=== PATIENT | female | born 1955 | race Caucasian/White ===

== ENCOUNTER → 2020-05-04 15:41 | Outpatient (CLI) | payer OTHER, SELFPAY ==
[2020-05-05 09:35] LABS: COVID19 Sendout Not Detected (Not Detect)
== END ==
PROVIDERS: Visit Provider Physician Assistant
DX: Z11.59 Encounter for screening for other viral diseases (principal)
CPT/HCPCS: 87635

== ENCOUNTER 2020-05-07 06:08 | Inpatient (IN) | payer OTHER, SELFPAY ==
[2020-05-04 10:56] VITALS: BMI 32.0
[2020-05-07] VITALS (14 sets, daily range): BP systolic 110–200; BP diastolic 59–111; PULSE 65–102; RESP 10–18; TEMP 36–36.9; O2SAT 93–100; BMI 33.0
--- NOTE | 2020-05-07 | PATH_ITS ---
[facility] Accession Number: [id number] . 01 Material submitted: . PART A: body - FACET CYST PART B: back - L3-4 DISC . 01 Clinical history: . TRANSLAMINAR INTERBODY FUSION/LAMINOTOMY . 02 Diagnosis: A. Facet Cyst, Translaminar Interbody Fusion/Laminotomy: Portions of fibrotendinous material with reactive features and small, reactive bone fragments. Negative for malignancy. . B. L3-4 Disc, Translaminar Interbody Fusion/Laminotomy: Fragments of fibrocartilage, consistent with disc material. MRV 05/10/2020 1603 Local . 02 Electronically signed: . Isis Brand MD, Pathologist NPI- [id number] . 01 Gross description: . A. Received in formalin, labeled with the patient's name, MRN and facet cyst, is a 1.8 x 1.3 x 1.0 cm poon-brown, ragged fragment of tissue. The entire external surface is inked black. The specimen is serially sectioned to reveal a white-poon, fibrotic cut surface. The entire specimen is submitted in cassettes A1-A2. B. Received in formalin, labeled with the patient's name, MRN and L3-4 disc, are [id number] irregular fragments of tissue measuring 0.7 cm and 1.5 cm in greatest dimension. The smaller fragment of tissue is cartilaginous. The entire specimen is submitted in cassette B1. ([id number]) /MRV 05/10/2020 0008 Local . 02 Pathologist provided ICD-10: M48.062, M51.16, M41.86 . 02 CPT . 881942, [id number] Performed at: [address] [place] [address] [address] [address], [place], [place] [id number] MD Genaro Beard MD Phone: [phone] Performed at: 02 [facility] [address] [place] [id number] MD Pinky Mitchell MD Phone: [phone]
[2020-05-07] MEDS: LACTATED RINGERS 1,000 ML 42 ML IV ×2 (07:07→09:42)
--- NOTE | 2020-05-07 07:09 | PM.PREOP ---
Pre-operative Note COVID-19 COVID-19 status: Negative Result date/Date tested (Pos, Neg/Pending): 05/04/20 Interval Note History & Physical reviewed/Exam performed by Physician: Yes Changes to H&P: No
[2020-05-07] MEDS: MIDAZOLAM 2 MG/2 ML VIAL IV (07:39)
[2020-05-07] MEDS: CEFAZOLIN 2 GM/100 ML FROZ.PIGGY IV ×2 (07:44→16:38)
--- NOTE | 2020-05-07 08:00 | DI.RAD.S_ITS ---
PROCEDURE: XR LUMBAR SPINE 2-3V INDICATIONS: L3-4 TLIF TECHNIQUE: 2 views of the lumbar spine were acquired. COMPARISON: SNO Outside Film, RG, SPINE LUMB 2 OR 3VW, 04/02/2020, 8:19. FINDINGS: Spot fluoroscopic intraoperative views demonstrating posterior spinal fixation at L4-L5 with paraspinal janet and pedicle screws. There is expected intraoperative alignment Interbody cage graft also noted. Dictated by: Ashok Perales M.D. on 05/07/2020 at 14:30 Approved by: Ashok Perales M.D. on 05/07/2020 at 14:32
--- NOTE | 2020-05-07 08:24 | SUR.OPER ---
Prone on spine table, head in foam head support, padded chest and pelvic supports, gel pad at knees, lower legs supported by pillows; nipples, genitalia and toes free of pressure, arms secured on foam padded arm boards at <90 degrees abduction. Tape over blanket at thigh secured to table.
[2020-05-07] MEDS: THROMBIN (RECOMBINANT) 5,000 UNIT VIAL 5000 UNIT TOP (08:33)
[2020-05-07] MEDS: SODIUM CHLORIDE 0.9% 1,000 ML, GENTAMICIN 80 MG IRR (08:33)
[2020-05-07] MEDS: BUPIVACAINE 0.5% (PF) 4 ML, MORPHINE-PF 4 MG, BUTORPHANOL 1 MG, fentaNYL 100 MCG INJ (10:01)
[2020-05-07] MEDS: VANCOMYCIN 1,000 MG VIAL 1000 MG TOP (10:02)
--- NOTE | 2020-05-07 11:54 | PM.OP.1 ---
Operative Date/Time/Diagnoses Date of procedure: 05/07/20 Time of procedure: 11:54 Pre-op diagnosis: Lumbar stenosis with radiculopathy Lumbar disc herniation Procedure & Clinicians Procedure: L2-3 and L3-4 laminectomy L3-4 TLIF (posterior/posterior interbody fusion) with cage L3, L4 screws Iliac crest bone graft aspirate Use of microscope Placement of epidural catheter Same procedure as scheduled: Yes Indications: [age] year old female with intractable pain from stenosis and disc herniation. They had failed conservative management and requested operative intervention. Risks and benefits of surgery were discussed and appropriate consents were obtained. Surgeon: Nimesh Mayo [employer] Director: Gail Dean Anesthesia Type: General Operative Notes Findings: Large 1.4 cm facet cyst at L3-4 on the left Inflammation throughout the entire spinal canal at this level as well as near absent disc material Closure Type: primary Specimen(s): other (Left L3-4 facet cyst and L3-4 disc material to pathology as well as L3-4 disc material for microbiology) Applied: catheter Estimated Blood Loss (mL): 200 Procedure in detail: The patient was brought to the operating room and intubated on the table. A time-out was performed. They were then rolled over to the well-padded Adolph table in the prone position. Preoperative antibiotics were given. The back was prepped and draped in the standard sterile fashion. Using fluoroscopy, a 4 cm longitudinal incision was made to the right of the midline. We used Bovie to come down to and split the lumbodorsal fascia. Using fluoroscopy and monitoring, we then percutaneously placed Jamshidi needles down the pedicles of L3 and L4 on the right side. These were changed out to guidewires and then we tapped and then placed the NuVasive MAS Reline screw shanks. We then opened up the retractors and used Bovie to clear up the posterolateral gutter as well as medially along the lamina to the spinous processes. She had a massively overgrown facet on the right-sided L3-4. A bur was used to decorticate the transverse processes. We brought in the microscope. Using a combination of bur and Kerrison rongeurs, a laminectomy was performed from the right side. Once we removed the facet hypertrophy and began removing the bone we came down to the canal. We are able to remove the ligamentum but once we opened up the canal this was covered in inflammatory tissue all over the dura. There also appeared to be a very large mass coming off where we had removed the facet. We spent a large amount of time carefully dissecting this off until we completely isolated laid a large 1.4 cm facet cyst and were able to remove it as the solid piece and we sent this to pathology. We then were able to go underneath the inflammatory mass on top of the dura and expose the dura. However was still extremely adherent along the exiting nerve root. We were able to dissect between the exiting nerve root and the dura inferiorly and finally exposed our disc space. We gradually were able to free this up further off the disc until we could retract. We worked up with a ball probe and there were loose fragments of disc material that easily swept out but no solid mass matching up to her extruded herniation on MRI. Please note that this was separate and distinct from an approach for a TLIF as with all the inflammatory tissue, this was like working through revision scar tissue and added an extra hour of time. We then began the TLIF prep. We carefully cleaned up the remainder of the foramen until we could easily retract the exiting root as well as clearing medially below the dura and expose the disc space. The disc was prepped with bipolar and then an annulotomy was performed. We went in with pituitary but there was no disc material in this. We performed a diskectomy using a combination of paddles, milagros, pituitaries, and curettes. We were able to remove several chunks of disc material from the opposite side but there was nothing on the right-hand side. This disc material was sent to pathology as well as microbiology. I was suspicious for her having had a possible low-grade diskitis due to the appearance of the overall inflammation as well as the absence of disc material on the right-hand side and rapid collapse of the disc on the right compared to her x-rays from last year. We distracted the disc using a paddle and locked the retractor in an open position. The wound and the disc space were irrigated. We then filled the disc space with Osteocel bone graft. We then placed the globus Rise cage under fluoroscopy and then filled this in with more bone graft. The distraction on the retractor was released to compress down. This completed the posterior interbody fusion portion of the TLIF at L3-4. We then moved the retractor up to the L2-3 level and expose the lamina. We continued taking a our laminectomy up at L2-3. We carefully depressed the dura and reach across the opposite side to adequately decompress it. There was still a large inflammatory mass all along the dura at this level that began tapering off at the top of the laminectomy. In the end we could sweep the ball probe cephalad, caudally, into the foramen and everything had been adequately opened. The wound was irrigated. An epidural catheter was then prepped with 4 mL of 0.5% Marcaine, 1 mg Stadol, 4 mg Duramorph, and 100 mcg of fentanyl and placed in the spinal canal by carefully depressing the dura and advancing it 6 cm cephalad under the remaining lamina without resistance. We then placed the screw heads, janet, and locked down the set screws. The wound was copiously irrigated. A small stab incision was made over the PSIS. We used a Jamshidi needle to aspirate several mL of bone marrow from the pelvis. This was mixed with the remaining Osteocel and combined with all of the locally harvested bone graft and placed in the posterolateral gutter for the posterior fusion of the TLIF at L3-4. The muscle fascia was closed. The epidural catheter was then injected without resistance and the catheter was pulled. We then went to the opposite side. Again using fluoroscopy, a 3 cm incision was made and Bovie was used to come down to split the fascia. Using neural monitoring and fluoroscopy, Jamshidi needles were advanced down the pedicles of L3 and L4 on the left side. These were switched over guidewires, tapped, and screws placed. We then placed a janet and locked the set screws on this side. The wound was irrigated. The fascia was closed. Vancomycin powder was placed in the wounds. The superficial and skin were closed. A sterile dressing was placed. The patient was then rolled over extubated and brought to recovery room without complications. Complications: none Post-operative Condition: stable Disposition: PACU Plan for aftercare: Inpatient. I plan to keep her on IV antibiotics for 2-3 days and see if anything grows from her disc material.
--- NOTE | 2020-05-07 13:33 | PC.ADMIT ---
Addendum entered by Maci Echevarria R.N. 05/07/20 14:15: PATIENT DESAT'S TO 87% WHEN DOZES OFF TO SLEEP. INSTRUCTED ON USE OF I.S. PATIENT ABLE TO REACH 2000CC'S X 10 BREATHS, CONTINUES TO DESAT WITH SLEEP. ADMINISTERED 2L/NC WITH SAT'S 98% WHILE ASLEEP. Original Note: [address] Admission Note: The patient,Day Mar,65 y/o, was given written information regarding hospital policies, unit procedures and contact persons. Patient's smoking status: Never smoker. Vital Signs - 8 hr 05/07/20 06:56 05/07/20 11:57 05/07/20 12:02 Temperature 98.5 F 97.2 F L Pulse Rate 102 H 102 H 100 H Respiratory Rate 18 18 18 Blood Pressure 200/111 H 111/68 120/79 Pulse Oximetry 100 94 93 05/07/20 12:10 05/07/20 12:15 05/07/20 12:30 Temperature 97.8 F Pulse Rate 92 H 92 H 97 H Respiratory Rate 10 L 10 L 16 Blood Pressure 111/69 110/66 112/59 L Pulse Oximetry 93 97 95 05/07/20 13:00 05/07/20 13:30 Temperature 98 F 98 F Pulse Rate 75 75 Respiratory Rate 15 16 Blood Pressure 124/97 H 131/74 Pulse Oximetry 95 95 PATIENT ARRIVED FROM RECOVERY AWAKE, DROWSY, CONVERSANT AND PLEASANT. VSS, FOOT SCD'S ON. IVF STARTED PER ORDERS, PROVIDED ICE WATER, DECLINES FOOD OFFERED. DENIES NAUSEA. BATISTA TO GRAVITY DRAINAGE. CMS INTACT, EXCELLENT STRENGTH WITH DORSIFLEX AND PLANTAR-FLEX. PATIENT DENIES PAIN, STATES I FEEL GREAT, I CAN'T BELIEVE IT'S OVER CONT PULSE OXIMETRY WITH SAT'S MID 90'S ON RA. JANAE CDI, INSTRUCTED ON LOGROLL. CALLED SPOUSE FOR PATIENT, TRANSF CALL INTO RM. PATIENT IS FROM [place]. PLANS TO STAY IN HOTEL ROOM WITH HER SPOUSE FOR 6 WEEKS UNTIL SHE IS CLEARED BY ORTHO TO FLY BACK TO [place]. ORIENTED TO RM AND CALL LIGHT SYSTEM. INSTRUCTED TO CALL FOR NEEDS.
[2020-05-07] MEDS: CELECOXIB 200 MG CAPSULE 400 MG PO (13:59)
[2020-05-07] MEDS: GABAPENTIN 600 MG TABLET PO ×2 (13:59→20:55)
[2020-05-07] MEDS: LACTATED RINGERS 1,000 ML 125 ML IV (13:59)
[2020-05-07] MEDS: CELECOXIB 200 MG CAPSULE PO (20:55)
[2020-05-07] MEDS: SENNOSIDES 8.6 MG TABLET 17.2 MG PO (20:55)
[2020-05-07] MEDS: DOCUSATE 100 MG CAPSULE PO (20:55)
[2020-05-08] VITALS: BP 133/84; PULSE 97; RESP 18; TEMP 36.6; O2SAT 97
[2020-05-08] MEDS: CEFAZOLIN 2 GM/100 ML FROZ.PIGGY IV ×3 (00:31→15:55)
[2020-05-08] MEDS: diphenhydrAMINE 25 MG TABLET PO (03:10)
--- NOTE | 2020-05-08 03:14 | PC.NURSE ---
Pt reports generalized itching. Benadryl given w/good results. Small amount of drainage noted on dressing. Margins marked - no increase in drainage throughout shift. Pt has no c/o of pain.
[2020-05-08 04:00] VITALS: BP 126/65; PULSE 99; RESP 18; TEMP 36.6; O2SAT 99
[2020-05-08 05:51] LABS: Hematocrit 25.3 % (36-46); Hemoglobin 8.4 g/dL (12.0-16.0)
[2020-05-08 07:20] VITALS: BP 111/57; PULSE 90; RESP 18; TEMP 37.1; O2SAT 98
[2020-05-08] MEDS: SODIUM CHLORIDE 0.9% 250 ML 21 ML IV (09:00)
[2020-05-08] MEDS: DOCUSATE 100 MG CAPSULE PO (09:12)
[2020-05-08] MEDS: GABAPENTIN 600 MG TABLET PO ×2 (09:13→15:54)
[2020-05-08] MEDS: LOSARTAN 25 MG TABLET PO (09:13)
[2020-05-08] MEDS: CELECOXIB 200 MG CAPSULE PO (09:13)
--- NOTE | 2020-05-08 09:25 | PM.PNPO.1 ---
Subjective Subjective Date Patient Seen: 05/08/20 Time Patient Seen: 09:25 Interval history: She is doing great. Minimal back pain no leg pain. About to get out of bed with therapy. Exam Vital Signs (past 8 hours): - 05/08/20 04:00 05/08/20 07:20 Temperature 97.8 F 98.7 F Pulse Rate 99 H 90 Respiratory Rate 18 18 Blood Pressure 126/65 111/57 L Pulse Oximetry 99 98 Oxygen Delivery Method Room Air Oxygen Flow Rate 0 Const Orientation: alert and oriented x3 Back/Spine/Pelvis Other: Moderate drainage, unchanged since overnight. 5/5 motor both lower extremities Objective Labs Result Diagrams: 05/08/20 05:32 Labs: Laboratory Results - last 24 hr 05/08/20 05:32 Hgb 8.4 L Hct 25.3 L Assessment & Plan Post-op Postoperative Procedures: Procedures Operation Date: 05/07/20 07:45 Actual Procedures Side Surgeon p L34 discectomy & instrumented fusion (TLIF) w/bone graft, L23 laminectomy Nimesh Mayo MD She is doing great. Her Gram stain from yesterday showed no organisms or white blood cells. Most likely this is just degenerative disc. Plan to mobilize her today with therapy. If she is doing great, could discharge home. If not, 1 more day. Quality VTE Deep Vein Thrombosis/Pulmonary Embolism Present on Admission: No
--- NOTE | 2020-05-08 09:46 | OT.IP.EVAL ---
Current Diagnoses Other forms of scoliosis, lumbar region (05/07/20) Spinal stenosis, lumbar region with neurogenic claudication (05/07/20) Intervertebral disc disorders with radiculopathy, lumbar region (05/07/20) Surgery Performed Operation Date: 05/07/20 07:45 Actual Procedures p L34 discectomy & instrumented fusion (TLIF) w/bone graft, L23 laminectomy - Nimesh Mayo MD Past Medical History (Last Updated 05/04/20 @ 11:10 by Angelita Anand RN) Arthritis (Acute) HTN (hypertension) (Acute) Surgical History (Last Updated 05/04/20 @ 11:10 by Angelita Anand RN) H/O foot surgery (Acute) H/O right wrist surgery (Acute) History of surgery (Acute) Hx of tonsillectomy (Acute) Occupational Therapy Inpatient Evaluation/Re-Eval M1 PT/OT-IP Prior Functional Status Start: 05/07/20 13:34 Freq: NEEDED Status: Active Protocol: Document 05/08/20 12:03 CGR (Rec: 05/08/20 12:33 CGR [email or web address]) Medical Review Prior Functional Status Medical History Reviewed Yes Communication Pt is an effective verbal communicator. Mobility and Gait Prior to significant increase in back pain, pt was IND. Pt has needed assist from her for mobility since her back pain has increased. Activities of Daily Living and IADL's Pt was IND prior to significant increase in back pain. Pt has been assisted by her husand since increase in pain. Prior Functional Level (Other details) Pt lives in [place]. Pt is currently staying in a hotel in [place] till her return flight home. The hotel has an elevator and no steps to enter . Social History Household Members spouse,other Living Arrangements House Number of Floors (Floors) One Floor Number of Stairs To Enter/Railing? 4 with B wide railings. Home Environment Standard Height Toilet,Tub/ Shower Doors Home Equipment Grab Bars Near Toilet,Grab Bars In Shower Employment Status Unemployed Additional Social History Comment Pt has no equipment at home. Pt has a flat bed. M3 OT- IP Subjective and Pain Start: 05/07/20 13:34 Freq: Status: Active Protocol: Document 05/08/20 12:03 CGR (Rec: 05/08/20 12:33 CGR [email or web address]) OT- Subjective Occupational Therapy Visit Type Type Initial Evaluation Visit Start Time 09:05 Visit Stop Time 09:46 Total Visit Minutes 41 Occupational Therapy Visit Comments Patient Comments I am not havign any pain. OT Pain Assessment Pain When Pain Assessed During Mobility Pain Present Pain Present Denied Pain M4 OT- IP ADL's Start: 05/07/20 13:34 Freq: Status: Active Protocol: Document 05/08/20 12:03 CGR (Rec: 05/08/20 12:33 CGR [email or web address]) OT [id number] Comments OT Self-Feeding Comments Not meal time OT ADL-Grooming General Evaluation Grooming Ability Independent Areas Needing Assistance Face Washing Comments OT Grooming Comments standing at sink OT ADL-Oral Care General Eval Oral Care Ability Independent Areas of Assistance Brushing Teeth Comments Oral Care Comments standing at sink OT ADL-Dressing General Eval Lower Body Dressing Ability Independent Areas Needing Assistance Socks Comments OT Dressing Comments seated in chair bringing foot to knee. Pt educated on sitting for LB dressign and technique for maintaining back precautions. OT ADL-Toileting General Evaluation Toileting Ability Standby Assistance Comments OT Toileting Comments simulated toileting seated on toielt OT ADL-Bathing Comments OT Bathing Comments not performed M6 OT- IP Functional Cognition Start: 05/07/20 13:34 Freq: Status: Active Protocol: Document 05/08/20 12:03 CGR (Rec: 05/08/20 12:33 CGR [email or web address]) Cognitive Factors Limiting Selfcare Function Cognitive Ability Level of Alertness Alert Patient Orientation Name,Age,Birthday,Month,Date, Year,Day of Week,Place, Situation Attention Span Ability Capable of Focused Attention, Capable of Sustained Attention Ability to Follow Commands Able to Follow Multi-Step Commands Memory Description No Deficits Noted Safety Awareness No Deficits Noted Problem Solving Ability No deficits Noted OT- Vision and Hearing OT- Hearing Assessment OT- Hearing Assessment WFL OT- Vision Assessment Visual Acuity Glasses For Reading Visual Attentiveness WFL Occular Pursuits WFL Visual Convergence WFL M7 OT- IP Mobility and Balance Start: 05/07/20 13:34 Freq: Status: Active Protocol: Document 05/08/20 12:03 CGR (Rec: 05/08/20 12:33 CGR [email or web address]) OT- Bed Mobility Assessment Rolling Type of Rolling Log Rolling,Roll to Left Level of Assistance Standby Assistance,Contact Guard Assistance Supine to Sit Supine to Sit Assist Standby Assistance Scooting Scooting to Edge of Bed Standby Assistance OT-Transfer Assessment Sit to and From Stand Sit to and from Stand Standby Assistance Transfers Transfer Ability Standby Assistance Technique Transfer Destination Bed,Chair,Toilet Transfer Technique Stand Step Pivot Devices Transfer Assistive Devices Gait Belt,Front Wheeled Walker OT- Gait Assessment Gait Gait Assistance Required: Standby Assistance Assistive Devices Assistive Device Gait Belt,Front Wheeled Walker Comments Gait Ability Comments mobility around the room. OT- Balance Assessment Sitting Balance and Reactions Static Sitting Balance Ability Normal Dynamic Sitting Balance Ability Normal M8 OT- IP Objective Assessments Start: 05/07/20 13:34 Freq: Status: Active Protocol: Document 05/08/20 12:03 CGR (Rec: 05/08/20 12:33 CGR [email or web address]) OT Gross Range of Motion Upper Extremity Range of Motion Assessment Within Functional Limits OT Strength Upper Extremity Strength Assessment Within Functional Limits Comments Strength Comments 4/5 throughout OT- Coordination Assessment Upper Extremity Finger to Nose Test Within Functional Limits Finger Tapping Test Within Functional Limits OT-Muscle Tone Assessment Muscle Tone WNL Yes OT Sensation Assessment Edema Edema Absent M9 OT- IP Assessment and Plan Start: 05/07/20 13:34 Freq: Status: Active Protocol: Document 05/08/20 12:03 CGR (Rec: 05/08/20 12:33 CGR [email or web address]) OT Summary Assessment and Plan Potential Rehabilitation Potential Excellent Analytic Complexity at Evaluation Low Summary Progress Towards Goals Safe For Discharge,Goals Met Assessment Summary Pt presents as a low complexity evaluation s/p L2-4 TLIF and cyst removal. Pt is mobilizing and performing her ADLs at [facility] at this time. Pt educated on home safety and back precautions. No further OT needs. Frequency of Treatment Frequency Of Treatment Discharge Discharge Recommendations OT Discharge Recommendations Home Transportation Needs at Discharge Private Vehicle
[2020-05-08 11:00] VITALS: BP 93/50; PULSE 102; RESP 18; TEMP 36.8; O2SAT 98
--- NOTE | 2020-05-08 11:14 | PT.IIE ---
Current Diagnoses Other forms of scoliosis, lumbar region (05/07/20) Spinal stenosis, lumbar region with neurogenic claudication (05/07/20) Intervertebral disc disorders with radiculopathy, lumbar region (05/07/20) Surgery Performed Operation Date: 05/07/20 07:45 Actual Procedures p L34 discectomy & instrumented fusion (TLIF) w/bone graft, L23 laminectomy - Nimesh Mayo MD Surgical History (Last Updated 05/04/20 @ 11:10 by Angelita Anand RN) H/O foot surgery (Acute) H/O right wrist surgery (Acute) History of surgery (Acute) Hx of tonsillectomy (Acute) Medical History (Last Updated 05/04/20 @ 11:10 by Angelita Anand RN) Arthritis (Acute) HTN (hypertension) (Acute) Physical Therapy Inpatient Evaluation/Re-Eval M1 PT/OT-IP Prior Functional Status Start: 05/07/20 13:34 Freq: NEEDED Status: Active Protocol: Document 05/08/20 12:03 CGR (Rec: 05/08/20 12:33 CGR [id number]) Medical Review Prior Functional Status Medical History Reviewed Yes Communication Pt is an effective verbal communicator. Mobility and Gait Prior to significant increase in back pain, pt was IND. Pt has needed assist from her for mobility since her back pain has increased. Activities of Daily Living and IADL's Pt was IND prior to significant increase in back pain. Pt has been assisted by her husand since increase in pain. Prior Functional Level (Other details) Pt lives in [place]. Pt is currently staying in a hotel in [place] her return flight home. The hotel has an elevator and no steps to enter . Social History Household Members spouse,other Living Arrangements House Number of Floors (Floors) One Floor Number of Stairs To Enter/Railing? 4 with B wide railings. Home Environment Standard Height Toilet,Tub/ Shower Doors Home Equipment Grab Bars Near Toilet,Grab Bars In Shower Employment Status Unemployed Additional Social History Comment Pt has no equipment at home. Pt has a flat bed. M1 PT/OT-IP Prior Functional Status Start: 05/08/20 13:45 Freq: NEEDED Status: Active Protocol: Document 05/08/20 11:14 AB (Rec: 05/08/20 14:08 AB [id number]) Medical Review Prior Functional Status Medical History Reviewed Yes Communication able to make needs known Mobility and Gait Pt stated that she is independent with all mobilities and ambulation without AD Activities of Daily Living and IADL's per OT notes. Pt was IND prior to significant increase in back pain. Pt has been assisted by her husand since increase in pain. Prior Functional Level (Other details) Pt lives in [place]. Pt is currently staying in a hotel in [place] till her return flight home. The hotel has an elevator and no steps to enter . Social History Household Members spouse,other Living Arrangements House Number of Floors (Floors) One Floor Number of Stairs To Enter/Railing? 5 steps with B wide railings and can only use one rail at a time Home Environment Standard Height Toilet,Tub/ Shower Doors Home Equipment Grab Bars Near Toilet,Grab Bars In Shower Employment Status Unemployed Additional Social History Comment Pt has no equipment at home. Pt has a flat bed. M2 PT-IP Current Condition Start: 05/08/20 13:45 Freq: NEEDED Status: Active Protocol: Document 05/08/20 11:14 AB (Rec: 05/08/20 14:08 [id number]) Physical Therapy Current Condition Current Condition Evaluation Date 05/08/20 Treatment Diagnosis s/p L3-4 TLIF; L2-3, L3-4 laminectomy; difficulty in walking Onset Date 05/07/20 Precautions Lumbar Precautions Log Roll,No Twisting,Limit Bending,Lifting Restriction of 10 lbs,Gait Belt above Incisional Area M3 PT-IP Subjective Start: 05/08/20 13:45 Freq: NEEDED Status: Active Protocol: Document 05/08/20 11:14 AB (Rec: 05/08/20 14:08 [id number]) Subjective Physical Therapy Visit Type Type Initial Evaluation Visit Start Time 11:14 Visit Stop Time 11:48 Total Visit Minutes 34 Number of SOLUTIONS OPERATOR Visits 0 Physical Therapy Visit Comments Patient Comments pt is agreed to do PT Therapy Pain Assessment Pain Present Pain Present Denied Pain M4 PT-IP Mobility and Gait Start: 05/08/20 13:45 Freq: NEEDED Status: Active Protocol: Document 05/08/20 11:14 AB (Rec: 05/08/20 14:08 [id number]) PT-Bed Mobility Assessment Rolling Type of Rolling Log Rolling Level of Assist Standby Assistance Supine to Sit Supine to Sit Standby Assistance Sit to Supine Sit to Supine Standby Assistance Scooting Scooting to Edge of Bed Standby Assistance PT-Transfer Assessment Sit to and From Stand Sit to and from Stand Standby Assistance,1 Person Assistance,Use of Upper Extremities Equipment Transfer Assistive Device Gait Belt,Front Wheeled Walker Orthotic/Prosthetic Devices or Brace: No Transfers Transfer Destination Bed,Chair Transfer Technique ambulated using FWW Transfer Ability Level of Assist Standby Assistance,Contact Guard Assistance,1 Person Assistance,Use of Upper Extremities Comments Mobility Comments reviewed back precautions with pt and pt was able to recall. completed sit to stand from chair SBA and ambulated towards the bed using FWW ~ 15 ft SBA to CGA. completed log roll supine<>sit SBA. agreed to do stairs and ambulated towards the stairs using FWW SBA. completed up/down steps using 1 rail SBA. ambulated back to her room and sat up on chair. nurse informed PT that they have to change pt's dressing when done with PT. informed nurse and Left pt with nurse. Gait Assessment Gait Gait Assistance Required: Standby Assistance,Contact Guard Assist,1 Person Assist Distance (Feet) 30 Able to Maintain Weight Bearing Status Yes During Gait Assistive Devices Assistive Device Gait Belt,Front Wheeled Walker Orthotic/Prosthetic Devices or Brace: No Gait Deviations General Gait Pattern Antalgic,Decreased Stride Length,Decreased Feet Clearance Factors Limiting Gait Function Factors Limiting Gait Function Decreased Activity Tolerance, Decreased Strength,Poor Balance Comments Gait Comments pt initially requiring CGA but after a few feet of walking, only required SBA. Stair Climbing Assessment Evaluation Level of Assist On Stairs Standby Assistance Devices Stair Climbing Assistive Devices Left Railing Technique/Endurance Stair Climbing Direction Ascend and Descend Stair Climbing Technique Step to Step Number of Steps Climbed 3 Query Text: Stair Climbing Set # Repetitions (reps) 2 PT-Balance Assessment Sitting Balance and Reactions Static Sitting Balance Ability Good Dynamic Sitting Balance Ability Good Standing Balance and Reactions Static Standing Balance Ability Fair Dynamic Standing Balance Ability Fair Device Used FWW M5 PT-IP Objective Assessments Start: 05/08/20 13:45 Freq: NEEDED Status: Active Protocol: Document 05/08/20 11:14 AB (Rec: 05/08/20 14:08 AB [id number]) Orientation Orientation/Cognition Level of Alertness Alert Orientation Name,Age,Place,Situation Safety Awareness Decreased Safety Awareness Memory Description Short Term Impaired Gross Range of Motion Lower Extremity ROM Assessment Within Functional Limits Strength Lower Extremity Strength Assessment Right Impaired Hip 3+/5 Knee 3+/5 Coordination Assessment Gross Coordination Gross Coordination WNL Sensation Assessment Sensation Gross Sensation Left LE Impaired Sensation Description Numbness Comments Sensation Comments c/o L foot numbness but stated that is chronic but much better now after surgery Muscle Tone Muscle Tone WNL Yes M6 PT-IP Treatment Start: 05/08/20 13:45 Freq: NEEDED Status: Active Protocol: Document 05/08/20 11:14 AB (Rec: 05/08/20 14:08 [id number]) Physical Therapy Treatment Education Education Provided Precautions,Weight Bearing Status,Post-Op Packet,Safety M7 PT-IP Assessment and Plan Start: 05/08/20 13:45 Freq: NEEDED Status: Active Protocol: Document 05/08/20 11:14 AB (Rec: 05/08/20 14:08 [id number]) PT Summary Assessment and Plan Potential Rehabilitation Potential Good Summary Impairments Pain,ROM,Strength,Balance, Sensation,Cognition,Bed Mobility,Transfers,Gait, Activity Tolerance Assessment Summary pt requiring SBA with mobility and has her spouse to assist her at home. Pt will need a FWW for home use and nurse stated that she will call the doctor for orders. will continue to assess progress. Goals Bed Mobility Goal Independent Transfer Goal Independent,Front Wheeled Walker Gait Goal Independent,Front Wheel Walker Gait Distance 200 Other Goals up/down 5 steps 1 rail mod I Days to Meet Goals 3 Frequency of Treatment Frequency Of Treatment Twice a Day Treatment Plan Physical Therapy Treatment Plan Bed Mobility Training,Transfer Training,Gait Training, Therapeutic Exercise,Balance Retraining,Post Op Education, Discharge Planning,Hot or Cold Pack,Neuromuscular Re-ed, Coordination Retraining Recommendations To Nursing Amount of Assist Needed 1 Person Assist Discharge Recommendations PT Discharge Recommendations Home with Assistance Equipment Needed for Home Before FWW Discharge Transportation Needs at Discharge Private Vehicle
[2020-05-08] MEDS: SODIUM CHLORIDE 0.9% FLUSH 10 ML IV (11:39)
[2020-05-08] MEDS: HYDROCODONE/ACET 5/325 TABLET 1 TAB PO (12:17)
--- NOTE | 2020-05-08 15:00 | PC.NURSE ---
Day Shift- Rec'd call from Dr. Mayo around 1500, pt requested to be discharged home today. Dr to place discharge order. Rec'd order to get home walker. Urinary catheter removed at 1200, pt instructed on post urinary catheter care expectations. No urge to void at the end of our shift. Lower back surgical dressing changed per order to 1 coversite dressing. Lower back incisions X2 well approximated with sutures intact, no S/S of infection, small amount of bruising noted to proximal end of right incision. No active drainage with dressing change. Pt had old sang drainage on dressing to left side of dressing. Area cleansed with NS, pat dry and new coversite dressing applied. Pt tolerated well. Denies numbness or tingling to BLE. Mobilizing OOB well with SBA and adhering to post op precautions.
--- NOTE | 2020-05-08 15:15 | PT.IPTN ---
Current Diagnoses Other forms of scoliosis, lumbar region (05/07/20) Spinal stenosis, lumbar region with neurogenic claudication (05/07/20) Intervertebral disc disorders with radiculopathy, lumbar region (05/07/20) Surgery Performed Operation Date: 05/07/20 07:45 Actual Procedures p L34 discectomy & instrumented fusion (TLIF) w/bone graft, L23 laminectomy - Nimesh Mayo MD Physical Therapy Treatment Note M2 PT-IP Current Condition Start: 05/08/20 13:45 Freq: NEEDED Status: Active Protocol: Document 05/08/20 11:14 AB (Rec: 05/08/20 14:08 AB [id number]) Physical Therapy Current Condition Current Condition Evaluation Date 05/08/20 Treatment Diagnosis s/p L3-4 TLIF; L2-3, L3-4 laminectomy; difficulty in walking Onset Date 05/07/20 Precautions Lumbar Precautions Log Roll,No Twisting,Limit Bending,Lifting Restriction of 10 lbs,Gait Belt above Incisional Area M3 PT-IP Subjective Start: 05/08/20 13:45 Freq: NEEDED Status: Active Protocol: Document 05/08/20 15:15 AB (Rec: 05/08/20 16:15 AB [id number]) Subjective Physical Therapy Visit Type Type Treatment Note Visit Start Time 15:15 Visit Stop Time 15:46 Total Visit Minutes 31 Number of POLICE OFFICER Visits 0 Physical Therapy Visit Comments Patient Comments pt is agreeable to do PT Therapy Pain Assessment Pain Present Pain Present Denied Pain M4 PT-IP Mobility and Gait Start: 05/08/20 13:45 Freq: NEEDED Status: Active Protocol: Document 05/08/20 15:15 AB (Rec: 05/08/20 16:15 AB [id number]) PT-Bed Mobility Assessment Rolling Type of Rolling Log Rolling Level of Assist Standby Assistance Supine to Sit Supine to Sit Standby Assistance Sit to Supine Sit to Supine Standby Assistance PT-Transfer Assessment Sit to and From Stand Sit to and from Stand Standby Assistance,1 Person Assistance Equipment Transfer Assistive Device Gait Belt,Front Wheeled Walker Orthotic/Prosthetic Devices or Brace: No Comments Mobility Comments completed log roll bed mobility SBA. completed sit to stand SBA and ambulated towards the stairs SBA and cues for back precautions. completed up/down stairs SBA using 1 rail. ambulated farther ~ 250 ft using [facility] SBA . pt requested to go back to bed. completed sit to supine SBA. positioned pt in bed. call light and table within reach. Gait Assessment Gait Gait Assistance Required: Standby Assistance Distance (Feet) 250 Able to Maintain Weight Bearing Status Yes During Gait Assistive Devices Assistive Device Gait Belt,Front Wheeled Walker Orthotic/Prosthetic Devices or Brace: No Gait Deviations General Gait Pattern Antalgic,Decreased Stride Length,Decreased Feet Clearance Factors Limiting Gait Function Factors Limiting Gait Function Decreased Activity Tolerance, Decreased Strength,Limited Range of Motion,Poor Balance, Poor Safety Awareness Comments Gait Comments pls refer to mobility section for details Stair Climbing Assessment Evaluation Level of Assist On Stairs Standby Assistance Devices Stair Climbing Assistive Devices Left Railing Technique/Endurance Stair Climbing Direction Ascend and Descend Stair Climbing Technique Step Over Step Number of Steps Climbed 3 Stair Climbing Set # Repetitions (reps) 1 M5 PT-IP Objective Assessments Start: 05/08/20 13:45 Freq: NEEDED Status: Active Protocol: Document 05/08/20 11:14 AB (Rec: 05/08/20 14:08 [id number]) Orientation Orientation/Cognition Level of Alertness Alert Orientation Name,Age,Place,Situation Safety Awareness Decreased Safety Awareness Memory Description Short Term Impaired Gross Range of Motion Lower Extremity ROM Assessment Within Functional Limits Strength Lower Extremity Strength Assessment Right Impaired Hip 3+/5 Knee 3+/5 Coordination Assessment Gross Coordination Gross Coordination WNL Sensation Assessment Sensation Gross Sensation Left LE Impaired Sensation Description Numbness Comments Sensation Comments c/o L foot numbness but stated that is chronic but much better now after surgery Muscle Tone Muscle Tone WNL Yes M6 PT-IP Treatment Start: 05/08/20 13:45 Freq: NEEDED Status: Active Protocol: Document 05/08/20 15:15 AB (Rec: 05/08/20 16:15 AB [id number]) Physical Therapy Treatment Education Education Provided Precautions,Safety Equipment Issued Equipment Type and Company [facility]: [employer]: pt signed papers and copy given to pt. M7 PT-IP Assessment and Plan Start: 05/08/20 13:45 Freq: NEEDED Status: Active Protocol: Document 05/08/20 15:15 AB (Rec: 05/08/20 16:15 AB [id number]) PT Summary Assessment and Plan Potential Rehabilitation Potential Good Summary Impairments Pain,ROM,Strength,Balance, Coordination,Sensation,Tone, Cognition,Bed Mobility, Transfers,Gait,Activity Tolerance Progress Towards Goals Progressing Toward Goals Assessment Summary pt is progressing well with PT and requiring SBA with occasional cues for back precautions and safety as pt can be impulsive. pt plans to go home later today and spouse to assist her at home. FWW dispensed to pt and pt signed papers. Goals Bed Mobility Goal Independent Transfer Goal Independent,Front Wheeled Walker Gait Goal Independent,Front Wheel Walker Gait Distance 200 Other Goals up/down 5 steps 1 rail mod I Days to Meet Goals 3 Frequency of Treatment Frequency Of Treatment Twice a Day Treatment Plan Physical Therapy Treatment Plan Bed Mobility Training,Transfer Training,Gait Training, Therapeutic Exercise,Balance Retraining,Post Op Education, Discharge Planning,Hot or Cold Pack,Neuromuscular Re-ed, Coordination Retraining Recommendations To Nursing Amount of Assist Needed 1 Person Assist Discharge Recommendations PT Discharge Recommendations Home with Assistance Equipment Needed for Home Before FWW Discharge Transportation Needs at Discharge Private Vehicle
--- NOTE | 2020-05-08 15:39 | CM.DANOTE ---
DCP/Assessment: Reviewed chart. Patient is a 65yr old female [facility] on 05-07-[address] Mayo. PCP is Dr. Masters in [place]. Primary payor is [facility] [employer] Met with patient and spouse at bedside explained CM/SW role. Patient resting comfortably in bed at time of visit. PT/OT evaluations currently pending. Patient reports that she and spouse reside in [place]. They came here specifically for elective surgery with Dr. Mayo. Patent and spouse currently staying with spouse in hot in [place]. Current plan is for patient to d/c to [facility] with spouse and return to [place] in May after her follow up visit with Dr. Mayo. P: Home/Hotel once medically stable. ANALI Kasper Discharge Planning/Care Management Advanced directive, confirm from FAMILY Start: 05/07/20 13:32 Freq: Q24H Status: Active Protocol: Document 05/07/20 13:33 [facility] (Rec: 05/07/20 13:33 [facility] [id number]) Advance Directive, confirm on record Time 13:33 Person contacted PATIENT Copy received No Document 05/08/20 14:04 CJ[facility] (Rec: 05/08/20 14:05 [facility] [id number]) Advance Directive, confirm on record Time 13:33 Person contacted PATIENT Copy received No CM Discharge Assessment Start: 05/08/20 15:37 Freq: Status: Active Protocol: Document 05/08/20 15:37 KJS (Rec: 05/08/20 15:39 KJS [id number]) Discharge Planning Assessment Assigned Business Teacher ANALI Kasper Contact Information Sander Mar (spouse) Advance Directives? Yes Advance Directives on File No: Does not have a copy availabe History Provided By Patient,Significant Other, Medical Record Has Patient been admitted in last 30 No days? Prior Living Arrangements House Household Members spouse,other Type of transporation used prior to Drives own vehicle admit Independent with ADL's Yes Is patient alert and oriented? Yes Caregiver for Another No Barriers to Discharge No Discharge Plan Home Transportation Arrangement Spouse to provide transport. Whiteboard Updated in Patient Room with Yes name and ext. # of Business Teacher Review Status In Process Next Review Type Continued Stay Review Pre-Anesthesia Assessment Start: 05/04/20 10:56 Freq: Status: Complete Protocol: Document 05/04/20 10:56 [facility] (Rec: 05/04/20 11:31 CAB [id number]) Pre-Anesthesia Assessment Patient Information Reviewed Via Phone Assessment Assessment Completed With Patient Diagnostic Results CBC,EKG Comment Outside labs/EKG scanned to record- COVID screen-pt needs to schedule Primary Care Provider Kerwin Seen Specialist in Last 12 Months Yes Specialist Seen Orthopedist Primary Language Indian Travel Pta Required No Height 175.26 cm Weight 98.43 kg Body Mass Index (BMI) 32.0 Hearing Ability Normal Visual Assist Magnifying Glass Dentition Type Teeth, Natural Present Barriers to Learning None Other Aids No Hx Anesthesia Reactions No Hx Family Anesthesia Reaction No Hx Malignant Hyperthermia No Hx Blood Transfusions No Anesthesia Review Requested No Assessment Clinician No alcohol intake current alcohol intake frequency holidays/special occasions only Smoking Status Never smoker Substance Use Type does not use Pain Present Pain Reported Musculoskeletal Symptoms Abnormal Gait,Back Pain, Difficulty Walking,Joint Pain, Numbness,Radiating Pain into Limb History of Falling (Recent or History of Yes ) Patient is completely paralyzed or No completely immobile Mental Status Oriented to own ability Comment Unable to stand up straight Is patient on oxygen? No Does patient have GUTIERREZ/SOB No Hx Sleep Apnea No Currently Taking a Beta Harshal No Can You Climb a Flight of Stairs Without No: Pt feels r/t SOB deconditioning, I don't do regular exercise Hx Chest Pain No Hx SOB No Hx Syncope or Dizziness No Anti-Coagulant Therapy No Has a Gang Drill Operator No Cardiac Testing No Hx Pacemaker/ICD No Pacemaker Rep Required? No Cardiac Clearance Received Not Applicable Diet Type At Home Regular dysphagia No Bladder Pattern Urgency Urinary Catheter Present No Hx Urinary Self Catheterization No Diabetes No Patient No Lactating No Hx Drug Resistant Organism No Presence of External or Internal Medical No Devices Have you had any close contact with No someone diagnosed with COVID-19? Marital Status Lives With other Number of Stairs To Enter/Railing? Currently living in a hotel room prior to coming from [place] to [facility] surgery Support System Spouse Does the Patient Have Assistance After Yes Surgery Patient Discharge Plan Description Return Home Comment Pt advised 2 day length of stay per surgeon. Will stay in [facility] Feels Safe in Current Environment Yes Been Physically Hurt or Threatened By a No Person in Current Environment Do you have thoughts of harming yourself None or others? Are you currently considering suicide? No Do you have a plan to hurt yourself or No Plan others? Do You Have Any Spiritual Beliefs That No May Affect Your HC Choices? Do You Have Any Cultural Practices That No May Affect Your HC Choices? Comment Yazidism Who Can We Speak to About Patient's Care Family, friends Identifying Code for Release of Patient Declines to issue Information Health Care Proxy/Next of Kin Sander Wilson () Health Care Proxy Emergency Contact Name Sander Wilson () Emergency Contact Advance Directives? Yes Advance Directives on File No: Does not have a copy availabe Requested Patient Bring Advanced Yes Directives DOS Power of Desktop Engineer Yes Power of Desktop Engineer Name Sander Wilson () Power of Desktop Engineer PAC Instructions Durable medical equipment, Medications to take/avoid, Nasal antibiotic,No ETOH/ petroleum product on skin DOS, NPO,Pre-surgical wash,Sensory aids,Sturdy shoes/comfortable clothes,Do not bring valuables and remove jewelry
[2020-05-08 16:08] VITALS: BP 129/80; PULSE 79; RESP 18; TEMP 36.6; O2SAT 100
--- NOTE | 2020-05-08 18:39 | PC.NURSE ---
dishcarge note: patient's spouse arrived to floor. Discharge paperwork was reviewed with both parties. Patient was given printed out prescriptions and advised to fill this evening as she may need pain medication later on. All questions and concerns were addressed with patient and spouse. Patient knows to f/up with surgery in 10 days. Patient reports appt is already sched. Patient left in stable condition with no pain or distress. Patient was escorted to car by float nurse on shift via a wheelchair.
== END 2020-05-08 17:48 | disposition home or self-care (01) | DRG 455 ==
LOC: OR 06:17 → AC 06:22
PROVIDERS: Admitting Provider Orthopaedic Surgery; Referring Provider Orthopaedic Surgery; Visit Provider Orthopaedic Surgery
PROC: 0SG00AJ Fusion of Lumbar Vertebral Joint with Interbody Fusion Device, Posterior Approach, Anterior Column, Open Approach (ICD-10-PCS; principal; 2020-05-07 07:45)
DX: M48.062 Spinal stenosis, lumbar region with neurogenic claudication (principal); M51.16 Intervertebral disc disorders with radiculopathy, lumbar region; M41.86 Other forms of scoliosis, lumbar region; M85.48 Solitary bone cyst, other site; I10 Essential (primary) hypertension
CPT/HCPCS: 36415; 36592; 72100; 76000; 85014; 85018; 87070; 87075; 87176; 87205; 94760; 94762; 97116; 97161; 97165; 97530; 97535; C1776; J0330; J0595; J0690; J1100; J1170; J2250; J2274; J2405; J2704; J3010